=== PATIENT | female | born 1995 | race Caucasian/White ===

== ENCOUNTER 2018-04-04 19:02 | Emergency (ER) | payer SELFPAY ==
[~2018-04-04] VITALS: Ht 160 cm; Wt 83.9 kg
[2018-04-04] MEDS ORDERED: HYDROCODONE/APAP 5MG-325MG TAB PO ONE (19:30)
== END 2018-04-04 19:45 | disposition home or self-care (01) ==
LOC: FSED 19:02
DX: R10.2 Pelvic and perineal pain (principal); N89.8 Other specified noninflammatory disorders of vagina
CPT/HCPCS: 81003; 81025; 87491; 87591; 99283